=== PATIENT | male | born 1955 | race Caucasian/White ===

== ENCOUNTER 2025-03-14 08:46 | Day surgery (SDC) | payer MEDICARE, OTHER ==
[2025-03-10 14:18] VITALS: BMI 35.2
[~2025-03-14 08:46] MED LIST: LIDOCAINE 1% (10MG/ML) FOR IV START INTRADERMA PRN
[2025-03-14 09:11] VITALS: TEMP 97.9
[2025-03-14 09:17] LABS: Glucose,Whole Blood 243 mg/dL (70-110)
[2025-03-14] MEDS: LACTATED RINGERS 1,000 ML IV SCH (09:19)
[2025-03-14] MEDS: INSULIN LISPRO (HumaLOG) 100 UNIT/ML 10 mL VL SQ ONE (09:22)
[2025-03-14] MEDS: IV FLUID CONTINUATION 1,000 ML IV ONE (09:24)
[2025-03-14] MEDS ORDERED: PROPOFOL 10 MG/ML 20 ML VIAL IV ONE (09:56)
[2025-03-14] MEDS ORDERED: LIDOCAINE 1% INJ 10MG/ML (20 ML MDV) ONE (09:56)
[2025-03-14 10:33] VITALS: RESP 16
[2025-03-14 10:40] LABS: Glucose,Whole Blood 256 mg/dL (70-110)
[2025-03-14 10:48] VITALS: BP 123/79; PULSE 71
--- NOTE | 2025-03-14 20:53 | P.OP ---
Date of Procedure: 03/14/25 Preoperative Diagnosis: Postive Cologuard Postoperative Diagnosis: Colon Polyps Procedure(s) Performed: Colonoscopy with Polypectomy Anesthesia: MAC Surgeon: Anderson Carranza Pathology: other (Colon polyp x 3) Condition: stable Disposition: PACU Description of Procedure: After informed consent was obtained, the patient was placed in the left lateral position and the above medications were titrated with adequate sedation. Monitoring was provided throughout the entire procedure. Digital rectal exam was performed revealing normal sphincter tone and no external hemorrhoids. The Pentax video colonoscope was inserted into rectum and advanced under direct visualization, without difficulty, to the cecum, where the cecal strap, appendiceal orifice, and the ileocecal valve were identified. The quality of the preparation was good. The colonoscope was then withdrawn while carefully examining the mucosa. The colonic mucosa appeared normal with normal vascularity and haustral markings. No masses, AVM/s or diverticula were seen. A polypectomy was performed of a colon on the right colon. Colon Biopsy was performed of two other polyps. On retroflexed view in the rectum, there are small internal hemorrhoids. The endoscope was removed and the procedure terminated. The patient tolerated the procedure well without complications.
== END 2025-03-14 10:58 | disposition home or self-care (01) ==
LOC: ORWHC2ENDO 08:46
PROVIDERS: ATTEND Surgery
DX: D12.5 Benign neoplasm of sigmoid colon (principal); D12.2 Benign neoplasm of ascending colon; K64.8 Other hemorrhoids; R19.5 Other fecal abnormalities; I10 Essential (primary) hypertension; E78.5 Hyperlipidemia, unspecified; N40.0 Benign prostatic hyperplasia without lower urinary tract symptoms; E11.9 Type 2 diabetes mellitus without complications; Z79.899 Other long term (current) drug therapy; Z79.84 Long term (current) use of oral hypoglycemic drugs; Z79.4 Long term (current) use of insulin; Z90.49 Acquired absence of other specified parts of digestive tract
CPT/HCPCS: 88305; 45380; 45385; J2003; J2704